=== PATIENT | female | born 1995 | race Caucasian/White ===

== ENCOUNTER → 2021-06-10 | Outpatient (CLI) | payer OTHER ==
--- NOTE | 2021-06-13 16:05 | REP ---
INDICATION: BMI GREATER THEN 40, GROWTH COMPARISON: None. TECHNIQUE: Transabdominal obstetrical ultrasound with color Doppler evaluation. FINDINGS: Examination demonstrates a single live intrauterine in breech presentation. motion is identified by technologist. Placenta is noted right lateral/fundal and grade 1 without evidence for placenta previa or abruption. Amniotic fluid volume is normal. Cervix measures 5.2 cm in length and appears closed.. Selected gestational age: 29 weeks 1 day with PEPE 08/25/2021. Gestational age by current measurements 29 weeks 1 day with PEPE 08/25/2021. FHR equals 156 beats per minute. BPD: 7.2 cm at 28 weeks 6 days HC: 27.6 cm at 30 weeks 1 day AC: 25.4 cm at 29 weeks 4 days FL: 5.3 cm at 28 weeks 2 days HL: 4.9 cm at 28 weeks 5 days HC/AC: 1.08 Estimated weight 1344 grams (39thpercentile). Anatomical assessment demonstrates normal structures including cranium, choroid plexus, cavum, cerebellum/posterior fossa, lungs, four-chamber heart/ventricular outflow tracts, diaphragm, stomach, cord insertion/three-vessel cord, kidneys/bladder, spine, and lower extremities. Limited evaluation of the facial profile and upper extremities due to position and maternal body habitus. IMPRESSION: Single live intrauterine in breech presentation demonstrating appropriate estimated weight. Anatomical limitations as noted above. Remainder of the anatomical assessment is complete and normal. <Electronically signed by Babatunde Delarosa > 06/10/21 [id number]
== END ==
LOC: M RAD 12:39
PROVIDERS: ATTEND Registered Nurse Maternal Newborn
DX: O26.893 Other specified pregnancy related conditions, third trimester (principal); O32.1XX0 Maternal care for breech presentation, not applicable or unspecified; Z3A.29 29 weeks gestation of pregnancy

== ENCOUNTER → 2021-07-06 | Outpatient (CLI) | payer OTHER ==
[~2021-07-06] MED LIST: ACET500P3 PO; COLA100C5 PO; IBUP80TA PO; PRENTAB9 PO; SERT50TA29 PO; SYNT88TA2 PO; ZOLO50TA PO
== END ==
LOC: M RAD 10:38
PROVIDERS: ATTEND Registered Nurse Maternal Newborn
DX: O99.213 Obesity complicating pregnancy, third trimester (principal); Z3A.32 32 weeks gestation of pregnancy; O32.2XX0 Maternal care for transverse and oblique lie, not applicable or unspecified

== ENCOUNTER 2021-08-05 12:29 | Outpatient (CLI) | payer OTHER ==
[~2021-08-05] VITALS: Ht 162.6 cm; Wt 117.0 kg
[2021-08-05 12:54] VITALS: BP 103/59
[2021-08-05] MEDS ORDERED: ZOLO50TA PO (13:06)
[2021-08-05] MEDS ORDERED: SYNT88TA2 PO (13:06)
[2021-08-05] MEDS ORDERED: PRENTAB9 PO (13:06)
[2021-08-05] MEDS ORDERED: ACET500P3 PO (13:06)
[2021-08-05 13:14] LABS: HEMATOCRIT 33.5 % (36.0-47.0); MEAN CORPUSCULAR HEMOGLOBIN 26.3 pg (27.0-33.0); MEAN CORPUSCULAR HGB CONC 32.8 g/dl (32.0-36.5); PLATELET COUNT, AUTOMATED 155 10^3/uL (150-450); RED BLOOD COUNT 4.19 10^6/uL (4.00-5.40); WHITE BLOOD COUNT 5.9 10^3/uL (4.0-10.0)
[2021-08-05 13:31] LABS: APPEARANCE, URINE CLEAR (CLEAR); BACTERIA, URINE AUTO NEGATIVE (NEGATIVE); BILIRUBIN, URINE AUTO NEGATIVE (NEGATIVE); BLOOD, URINE BLOOD NEGATIVE (NEGATIVE); COLOR, URINE YELLOW (YELLOW); GLUCOSE, URINE (UA) AUTO NEGATIVE (NEGATIVE); KETONE, URINE AUTO NEGATIVE (NEGATIVE); LEUKOCYTE ESTERASE, URINE AUTO NEGATIVE (NEGATIVE); NITRITE, URINE AUTO NEGATIVE (NEGATIVE); PROTEIN, URINE AUTO NEGATIVE (NEGATIVE); RBC, URINE AUTO 0 /HPF (0-3); SPECIFIC GRAVITY URINE AUTO 1.004 (1.002-1.035); SQUAMOUS EPITHELIAL CELL UR AU 0 /HPF (0-6); UROBILINOGEN, URINE AUTO 0.2 mg/dL (0.0-2.0); WBC, URINE AUTO 0 /HPF (0-3)
[2021-08-05 13:41] LABS: ALBUMIN 2.6 GM/DL (3.2-5.2); ALT/SGPT 11 U/L (12-78); BILIRUBIN,TOTAL 0.3 MG/DL (0.2-1.0); BLOOD UREA NITROGEN 4 MG/DL (7-18); CALCIUM LEVEL 8.5 MG/DL (8.5-10.1); CARBON DIOXIDE LEVEL 22 MEQ/L (21-32); CHLORIDE LEVEL 109 MEQ/L (98-107); CREATININE FOR GFR 0.72 MG/DL (0.55-1.30); GLOMERULAR FILTRATION RATE > 60.0 (>60); GLUCOSE, FASTING 83 MG/DL (70-100); POTASSIUM SERUM 3.7 MEQ/L (3.5-5.1); SODIUM LEVEL 139 MEQ/L (136-145); TOTAL PROTEIN 6.1 GM/DL (6.4-8.2)
[2021-08-05 14:14] VITALS: BP 117/64
[2021-08-05 15:02] VITALS: BP 118/62
--- NOTE | 2021-08-05 16:07 | REP ---
INDICATION: GROWTH SONO. COMPARISON: 07/06/2021. TECHNIQUE: Real-time sonographic evaluation of the gravid uterus performed. FINDINGS: Estimated gestational age is37 weeks 1 day, EDC 08/25/2021. Today's measurements indicate appropriate growth. Presentation: Breech Placenta posterior, grade 2, without evidence of placenta previa. heart rate is recorded at 149 beats per minute. Amniotic fluid is subjectively normal. BETH 12.4, normal 7.5-24.4. Biophysical profile score 8/8. Closed cervical length is measured at 2.5 cm. Biometry chart: BPD: 91 mm, 37 weeks 1 days, 50th percentile. HC: 337 mm, 38 weeks 4 days, 76th percentile AC: 344 mm, 38 weeks 2 days, 69th percentile Femur length: 68 mm, 35 weeks 0 days, 18th percentile HC to AC ratio: 0.98, normal range 0.91-1.10. Estimated weight: 3212g, 66th percentile. SD ratio umbilical artery 2.17, normal 1.59-3.42. RI 0.54, normal 0.43-0.70. IMPRESSION: Viable single intrauterine gestation as above. <Electronically signed by Jay Montague > 08/05/21 [id number]
== END 2021-08-05 16:25 | disposition home or self-care (01) ==
LOC: M LDO 12:29
PROVIDERS: ATTEND Obstetrics & Gynecology
DX: O98.519 Other viral diseases complicating pregnancy, unspecified trimester (principal); U07.1 COVID-19; Z3A.00 Weeks of gestation of pregnancy not specified
CPT/HCPCS: 36415; 59025; 76816; 76819; 76820; 80053; 81001; 85027; 87081; G0378; G0463; U0002

== ENCOUNTER 2021-08-14 21:52 | Outpatient (CLI) | payer OTHER ==
[~2021-08-14] VITALS: Ht 162.6 cm; Wt 113.6 kg
[~2021-08-14 21:52] MED LIST changes: -COLA100C5 PO; -IBUP80TA PO; -SERT50TA29 PO
[2021-08-14 22:10] VITALS: BP 122/69
== END 2021-08-14 22:37 | disposition home or self-care (01) ==
LOC: M LDO 21:52
PROVIDERS: ATTEND Obstetrics & Gynecology
DX: O60.03 Preterm labor without delivery, third trimester (principal); Z3A.37 37 weeks gestation of pregnancy
CPT/HCPCS: 59025; G0378; G0463

== ENCOUNTER 2021-08-26 05:07 | Inpatient (IN) | payer OTHER ==
[~2021-08-26] VITALS: Ht 162.6 cm; Wt 117.8 kg
[2021-08-26 05:23] VITALS: BP 119/66
[2021-08-26] MEDS ORDERED: HOME MED LIST COMPLETE! XX SCH (05:30)
[2021-08-26] MEDS ORDERED: LR 1,000 ML IV SCH ×2 (05:40→06:55)
--- OUTSIDE RECORDS SUMMARY | 2021-08-26 05:44 | CCD ---
Author Author [facility] Organization [facility] Address Unknown Phone Unavailable Care Team Providers Care Dispute Resolution Specialist Name Role Phone ANAMIKA MELARA Unavailable Unavailable Zac Cruz Unavailable [phone] Zac Cruz Unavailable [phone] Fatuma Cruzon Unavailable [phone] Fatuma Cruzon Unavailable [phone] Fatuma Cruzon Unavailable [phone] Nancy Zac Unavailable [phone] [facility] Unavailable Unavailable Re-disclosure Warning The records that you are about to access may contain information from federally-assisted alcohol or drug abuse programs. If such information is present, then the following federally mandated warning applies: This information has been disclosed to you from records protected by federal confidentiality rules (42 CFR part 2). The federal rules prohibit you from making any further disclosure of this information unless further disclosure is expressly permitted by the written consent of the person to whom it pertains or as otherwise permitted by 42 CFR part 2. A general authorization for the release of medical or other information is NOT sufficient for this purpose. The Federal rules restrict any use of the information to criminally investigate or prosecute any alcohol or drug abuse patient.The records that you are about to access may contain highly sensitive health information, the redisclosure of which is protected by Article 27-F of the [facility] Public Health law. If you continue you may have access to information: Regarding HIV / AIDS; Provided by facilities licensed or operated by the [facility] Office of Mental Health; or Provided by the [facility] Office for People With Developmental Disabilities. If such information is present, then the following [facility] mandated warning applies: This information has been disclosed to you from confidential records which are protected by state law. State law prohibits you from making any further disclosure of this information without the specific written consent of the person to whom it pertains, or as otherwise permitted by law. Any unauthorized further disclosure in violation of state law may result in a fine or mcc sentence or both. A general authorization for the release of medical or other information is NOT sufficient authorization for further disc losure. Allergies and Adverse Reactions Type Description Substance Reaction Status Data Source(s ) Allergy Allergy No Known Drug Allergies Active A [facility] ([facility]) Encounters Encounter Providers Location Date Indications Data Source(s ) Outpatient Attender: Zac Cruz 08/05 09:31:09 AM EDT - 08/05/2021 11:51:30 AM EDT Kristan ([facility] ) Outpatient Attender: ANAMIKA Landerosant: [facility] 2021 01:14:00 PM EDT - 2021 02:14:00 PM EDT [facility] ital Outpatient<td><content ID="_[id number]">Office Visit</content>
<content><content styleCode="xLabel xSecondary">Encounter Reason:</content><content ID="_[id number]" styleCode="xSecondary">Office Visit - Note for "Office Visit": I had the pleasure of seeing Rashaad in consultation for echocardiography due to family history of CHD.She is a 25 year old 3 para 2 who is now 23 weeks . She is accompanied to the visit by her son. Her is followed by [facility]. Her has been unremarkable thus far. She is planning on delivering at [facility]. 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
<content><content styleCode="xSecondary xLabel">Encounter Diagnosis:</content><content ID="_[id number]" styleCode="xSecondary">Hereditary disease in family possibly affecting fetus, affecting management of mother, antepartum condition or complication, fetus 1</content></content></td><td><content styleCode="xSecondary">05-May-2021 14:00 </content><content styleCode="xLabel xSecondary"> To </content><content styleCode="xSecondary">07-May-2021 14:59</content>
<content styleCode="xSecondary">[facility]</content>
</td><td></td> [facility] 05/05/2021 02:28:02 PM EDT - 05/07/2021 02:59:16 PM EDT Office Visit - Note for "Office Visit": I had the pleasure of seeing Rashaad in consultation for echocardiography due to family history of CHD.She is a 25 year old 3 para 2 who is now 23 weeks . She is accompanied to the visit by her son. Her is followed by [facility]. Her has been unremarkable thus far. She is planning on delivering at [facility]. The ice cream server for the fetus is undecided.She is taking zoloft, baby aspirin and vitamins.Hereditary disease in family possibly affecting fetus, affecting management of mother, antepartum condition or complication, fetus 1 [facility] ([facility]) Office Visit - Note for "Office Visit": I had the pleasure of seeing Rashaad in consultation for echocardiography due to family history of CHD.She is a 25 year old 3 para 2 who is now 23 weeks . She is accompanied to the visit by her son. Her is followed by [facility]. Her has been unremarkable thus far. She is planning on delivering at [facility]. The ice cream server for the fetus is undecided.She is taking zoloft, baby aspirin and vitamins. Hereditary disease in family possibly af fecting fetus, affecting management of mother, antepartum condition or complication, fetus 1 Procedure Only<td><content [id number]">Procedure Only</content>
<content><content styleCode="xSecondary xLabel">Encounter Diagnosis:</content><content [id number]" styleCode="xSecondary">Hereditary disease in family possibly affecting fetus, affecting management of mother, antepartum condition or complication, fetus 1</content></content></td><td><content styleCode="xSecondary">05-May-2021 14:00 </content><content styleCode="xLabel xSecondary"> To </content><content styleCode="xSecondary">05-May-2021 14:50</content>
<content styleCode="xSecondary">[facility]</content>
</td><td></td> [facility] 05/05/2021 02:00:00 PM EDT - 05/05/2021 02:50:15 PM EDT Hereditary disease in family possibly affecting fetus, affecting management of mother, antepartum condition or complication, fetus 1 [facility] ([facility]) Hereditary disease in family possibly af fecting fetus, affecting management of mother, antepartum condition or complication, fetus 1 Medications No Information Insurance Providers Payer name Policy type / Coverage type Policy ID Covered constitution party ID Covered constitution party's relationship to hamilton Policy [place] Plan Information MURALI KELLY/MURALI [id number] Spouse 01 [id number] [facility] [id number] [employer] - O/P [id number] 19 [id number] Problems, Conditions, and Diagnoses Code Display Name Description Problem Type Effective Dates Data Source(s) Z3A35 35 weeks gestation of 35 weeks gestation of Diagnosis 2021 01:14:00 PM EDT [facility] Z362 Encounter for other screening follow-up Encounter for other screening follow-up Diagnosis 2021 01:14:00 PM EDT [facility] Surgeries/Procedures Procedure Description Date Indications Data Source(s) ECHO CARDIOVASC W/WO M-MODE RECORDING <td colspa n="2"> ECHO EXAM OF HEART, 2D (28169)</td><td> Status: Completed 05-May-2021 </td> 05/05/2021 02:29:00 PM EDT - 05/05/2021 02:29:00 PM EDT [facility] ([facility]) Results ID Date Data Source [id number] 08/05/2021 12:57:00 PM EDT [facility] Name Value Range Interpretation Code Description Data Cristin rce(s) Supporting Document(s) SARS coronavirus 2 RNA [Presence] in Res piratory specimen by NINA with probe detection POSITIVE [facility] This lab was ordered by [facility] a nd reported by [facility]. ID Date Data Source [id number] 08/05/2021 10:30:00 AM EDT [facility] Name Value Range Interpretation Code Description Data Cristin rce(s) Supporting Document(s) SARS-CoV-2 RNA Resp Ql NINA+probe DETECTED [facility] This lab was ordered by [facility] and reported by [facility]. ID Date Data Source [id number] 2021 05:09:00 PM EDT [facility] [address] [place] [address] PHONE: [phone] FAX: [phone] Name .................. : CATRINA NEIL Acct Number.................. : [id number] ROOM. ................. : MR Number ................... : [id number] Stay type ............. : O/P Discharge Date......... ... : 07/29/21 Admit Date ......... : 07/29/21 Admit Phys .................... : SARITHA HUYNH Date of ....... : 1995 Family Phys ................... : UNKNOWN Phone .................. : [phone] Age ................................ : 26 Film# .................. .:[id number] Sex ................................. : F Unsigned transcriptions are preliminary reports and do not represent a medical or legal document OB FOLLOW UP [id number] COMPLETE:07/29/21 15:21 ADB 04150 Reason for Exam: GROWTH DUE TO MORBID ULTRASOUND OBSTETRICAL FOLLOW-UP INDICATION: Check estimated weight. Maternal obesity. COMPARISON: None LMP: unknown Predicted gestational age by current exam: 35 weeks 5 days FINDINGS: BPD 9.0 cm, 36 weeks 2 days HC 33.9 cm, 38 weeks 6 days AC 32.9 cm, 36 weeks 6 days FL 6.4 cm, 33 weeks 0 days HL 5.8 cm, 33 weeks 6 days FL/AC: 0.19 HC/AC: 1.03 within normal range CI: 0.73 within normal range EFW 2828 grams. Maternal cervical length 3.2 cm. FHR 150 bpm GESTATION single PRESENTATION Vertex PLACENTAL LOCATION posterior PREVIA/ABRUPTION None AMNIOTIC FLUID within normal limits BETH 15.1. Normal range 7.724.9 Page 1 of 2 [facility] [address] [place] [address] PHONE: [phone] FAX: [phone] Name .................. : CATRINA NEIL Acct Number.................. : [id number] ROOM. ................. : Number ................... : [id number] Stay type ............. : O/P Discharge Date......... ... : 07/29/21 Admit Date ......... : 07/29/21 Admit Phys .................... : SARITHA CERVANTESI Date of ....... : 1995 Family Phys ................... : UNKNOWN Phone .................. : [phone] Age ................................ : 26 Film# .................. .:[id number] Sex ................................. : F Unsigned transcriptions are preliminary reports and do not represent a medical or legal document OB FOLLOW UP [id number] COMPLETE:07/29/21 15:21 ADB 00306 Reason for Exam: GROWTH DUE TO MORBID The examination is degraded by large patient body habitus. Full anatomic survey was not ordered or performed. IMPRESSION: 1. Single live intrauterine gestation. Estimated gestational age 35 weeks 5 days based on today's exam. No prior exams available to establish more accurate dating. 2. Estimated weight 2828 g. 3. Amniotic fluid within normal limits. BETH 15.1. Electronically Reviewed and Signed By Ronald Massey MD , 07/29/21 17:10, JWS Transcribe Initials: OBEY , Transcribe Date: 07/29/21 15:45, Dictation Date: Copy for: SARITHA WILLSON Copy for: [address] [place] [address] REC Page 2 of 2 Name Value Range Interpretation Code Description Data Cristin rce(s) Supporting Document(s) Procedure Social History No Information
[2021-08-26] MEDS ORDERED: ACETAMINOPHEN 500 MG TAB PO SCH (06:00)
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
[2021-08-26 06:16] LABS: HEMATOCRIT 34.3 % (36.0-47.0); HEMOGLOBIN 11.4 g/dl (12.0-15.5); MEAN CORPUSCULAR HEMOGLOBIN 26.6 pg (27.0-33.0); MEAN CORPUSCULAR HGB CONC 33.2 g/dl (32.0-36.5); PLATELET COUNT, AUTOMATED 163 10^3/uL (150-450); RED BLOOD COUNT 4.29 10^6/uL (4.00-5.40); WHITE BLOOD COUNT 9.9 10^3/uL (4.0-10.0)
[2021-08-26] MEDS ORDERED: OXYTOCIN 30 UNITS IN 0.9% NaCl 500ML IV BAG (J2590) As Ordered ONE (06:20)
[2021-08-26] MEDS ORDERED: LIDOCAINE 1% MDV 20ML VIAL As Ordered ONE (06:36)
[2021-08-26] MEDS ORDERED: PROMETHAZINE 25 MG TAB PO PRN (06:55)
[2021-08-26] MEDS ORDERED: OXYTOCIN DRIP 30 UNITS in IV 1 EA IV SCH ×4 (06:55)
[2021-08-26] MEDS ORDERED: RHOGAM 300 MCG (1500 IU) INJ (J2790) IM SCH (06:55)
[2021-08-26] MEDS ORDERED: ONDANSETRON 4MG/2ML VIAL IV PRN (06:55)
[2021-08-26] MEDS ORDERED: METHYLERGONOVINE MALEATE 0.2 MG TAB PO PRN (06:55)
[2021-08-26] MEDS ORDERED: DIBUCAINE 1% OINTMENT 30GM TOP PRN (06:55)
[2021-08-26] MEDS ORDERED: LIDOCAINE 1% MDV 20ML VIAL SC ONE (06:55)
[2021-08-26] MEDS ORDERED: MEASLES,MUMPS,RUBELLA VACCINE INJ (MMR-II) (90707) SC SCH (06:55)
[2021-08-26] MEDS ORDERED: DOCUSATE SODIUM 100MG CAPSULE PO PRN (06:55)
[2021-08-26 06:58] VITALS: BP 108/72
--- NOTE | 2021-08-26 07:11 | DNPDOC ---
[facility] Delivery Note Delivery Note DATE OF DELIVERY: 26AUG2021 PREDELIVERY DIAGNOSIS: 39+4 weeks' gestation and labor. POST DELIVERY DIAGNOSIS: Delivered. PROCEDURE: Spontaneous vaginal delivery PIPED POCKET MACHINE OPERATOR: Pabol Barrientos DO ANESTHESIA: none ESTIMATED BLOOD LOSS: 300 mL. FINDINGS: 7 pound 15 ounce 3590g infant, Score 8/9, no nuchal or body cord DELIVERY SUMMARY: Eleanor Wen, well known to me from previous admissions, presented to Labor&Delivery and was 8cm with a bulging bag. We moved her to a labor room and began the admissions process. During the admissions process she could not resist the urge to push, and the membranes ruptured with meconium. She then delivered the baby in one push; head and shoulders delivered without issue. The was placed on the maternal abdomen and dried/stimulated. Good cry was noted. The umbilical cord was then clamped and cut by the father of the baby. The placenta then spontaneously delivered and was found to be complete on inspection. Inspection of the perineum revealed a 1st degree midline laceration which was repaired with 2 mqkfav-on-hhenz sutures of 0-vicryl. Hemostasis was noted. The maternal- dyad appeared to be bonding well and were in good condition when I left the room. DO HAILEY Altman BRADLEY J. DO Aug 26, 2021 07:11
[2021-08-26] MEDS: PRENATAL VITAMINS CHEWABLE TABLET PO SCH (07:22)
[2021-08-26] MEDS: IBUPROFEN 800 MG TAB PO SCH ×3 (07:22→22:07)
[2021-08-26] MEDS ORDERED: PRENATAL VITAMINS CHEWABLE TABLET PO SCH (09:00)
[2021-08-26] MEDS: ACETAMINOPHEN 500 MG TAB PO SCH ×3 (09:18→20:59)
[2021-08-26 09:22] VITALS: BP 133/72
[2021-08-26 17:51] VITALS: BP 129/78
[2021-08-26] MEDS ORDERED: ZOLO50TA PO (22:42)
[2021-08-26] MEDS ORDERED: SYNT88TA2 PO (22:42)
[2021-08-27] MEDS: ACETAMINOPHEN 500 MG TAB PO SCH ×3 (03:28→15:00)
[2021-08-27 06:00] VITALS: BP 135/77
[2021-08-27] MEDS ORDERED: LEVOTHYROXINE 88MCG TABLET (0.088 MG) PO SCH (06:00)
[2021-08-27] MEDS: IBUPROFEN 800 MG TAB PO SCH ×2 (06:28→14:44)
--- NOTE | 2021-08-27 07:54 | IPN ---
PROGRESS NOTE DATE: 08/27/2021 SUBJECTIVE: 26-year-old 3, now para 3 admitted with contractions at 39 and 4 weeks of gestation. Spontaneous vaginal delivery of male infant, 7 pounds 15 pounds, 3590 gm, Apgars of 8 and 9 at one and five minutes respectively. She sustained a first degree laceration which was repaired. She is hypothyroid, she is taking medication, Synthroid 0.88. She has history of depression and self-harm. On her first day we discussed phlebitis, cystitis, mastitis, amnionitis, cellulitis, diet, exercise, perineal and breast care. The patient is planning on discharge tomorrow morning. She is breast feeding, doing well. Her blood pressure this morning is 135/77, respirations 20, pulse 76, temperature 97.8. Her admitting hemoglobin was 11.4, hematocrit 34.4 and platelets 163. OBJECTIVE: The rest of the exam was unremarkable. Normocephalic, atraumatic. Neck full range of motion. Pupils equal and reactive to light. Distal pulses symmetric. No evidence of DVT, PE or superficial phlebitis. Chest is clear bilaterally at bases, no wheezes, rhonchi, and no CVA tenderness. Abdomen soft, four quadrant bowel sounds are noted. Uterus 2 below. Lochia is moderate. Perineum is healing. No urgency or frequency. No nausea, vomiting, diarrhea or constipation. No wheezing, no rhonchi. No chest pain. SUMMARY: We have a term gestation, delivered livebirth male infant. Waiting for pediatrics to see the baby today, circumcision is planned for today and discharge for tomorrow. All questions were answered. 20 minute discussion. cc: [facility]
[2021-08-27 08:09] LABS: HEMATOCRIT 30.7 % (36.0-47.0); HEMOGLOBIN 9.9 g/dl (12.0-15.5); MEAN CORPUSCULAR HEMOGLOBIN 26.5 pg (27.0-33.0); MEAN CORPUSCULAR HGB CONC 32.2 g/dl (32.0-36.5); MEAN CORPUSCULAR VOLUME 82.1 fl (80.0-96.0); PLATELET COUNT, AUTOMATED 141 10^3/uL (150-450); RED BLOOD COUNT 3.74 10^6/uL (4.00-5.40); WHITE BLOOD COUNT 9.7 10^3/uL (4.0-10.0)
[2021-08-27] MEDS ORDERED: SERTRALINE HCL 50 MG TAB PO SCH (09:00)
[2021-08-27] MEDS: PRENATAL VITAMINS CHEWABLE TABLET PO SCH (09:30)
[2021-08-27 17:14] VITALS: BP 135/80
[2021-08-27] MEDS ORDERED: IBUP80TA PO (17:47)
[2021-08-27] MEDS ORDERED: SERT50TA29 PO (17:47)
[2021-08-27] MEDS ORDERED: SYNT88TA2 PO (17:47)
[2021-08-27] MEDS ORDERED: COLA100C5 PO (17:47)
--- NOTE | 2021-08-28 09:48 | IPN ---
PROGRESS NOTE DATE: 08/26/2021 SUBJECTIVE: This patient requested circumcision of her male after discussing risks and benefits of circumcision, the medical, the nonmedical indications, penile block and after care, expressed an understanding of penile block, aftercare and bleeding, signed the consent form. All questions were answered, a 20 minute discussion. We await clearance by the tray drier. cc: [facility] CAR[facility]OS
== END 2021-08-27 20:54 | disposition home or self-care (01) | DRG 807 ==
LOC: M LDO 05:07 → M LDI 05:41 → M OBS 09:00
PROVIDERS: ADMIT Obstetrics & Gynecology; ATTEND Obstetrics & Gynecology
PROC: 10E0XZZ Delivery of Products of Conception, External Approach (ICD-10-PCS; principal; 2021-08-26)
PROC: 0HQ9XZZ Repair Perineum Skin, External Approach (ICD-10-PCS; 2021-08-26)
DX: O99.284 Endocrine, nutritional and metabolic diseases complicating childbirth (principal); Z37.0 Single live birth; E03.9 Hypothyroidism, unspecified; Z3A.39 39 weeks gestation of pregnancy; O99.214 Obesity complicating childbirth; E66.9 Obesity, unspecified; O77.0 Labor and delivery complicated by meconium in amniotic fluid; O70.0 First degree perineal laceration during delivery; Z86.16 Personal history of COVID-19

== ENCOUNTER 2023-02-16 17:51 | Emergency (ER) | payer OTHER ==
[~2023-02-16] VITALS: Ht 162.6 cm; Wt 109.0 kg
[~2023-02-16 17:51] MED LIST changes: +COLA100C5 PO; +IBUP80TA PO; +SERT50TA29 PO
[2023-02-16] MEDS ORDERED: ACET1TAB55 PO (17:59)
[2023-02-16 21:22] LABS: BASO % 0.2 % (0.0-1.0); EOS % 0.3 % (0.0-3.0); HEMATOCRIT 43.2 % (36.0-47.0); LYMPH # 2.8 10^3/uL (1.5-5.0); LYMPH % 28.3 % (24.0-44.0); MEAN CORPUSCULAR HEMOGLOBIN 27.6 pg (27.0-33.0); MEAN CORPUSCULAR HGB CONC 32.4 g/dl (32.0-36.5); MEAN CORPUSCULAR VOLUME 85.2 fl (80.0-96.0); MONO # 0.4 10^3/uL (0.0-0.8); MONO % 3.6 % (2.0-8.0); NEUTROPHILS # 6.6 10^3/uL (1.5-8.5); NEUTROPHILS % 67.2 % (36.0-66.0); PLATELET COUNT, AUTOMATED 295 10^3/uL (150-450); RED BLOOD COUNT 5.07 10^6/uL (4.00-5.40); WHITE BLOOD COUNT 9.9 10^3/uL (4.0-10.0)
[2023-02-16 21:50] LABS: LIPASE 24 U/L (12-53)
[2023-02-16 21:51] LABS: HCG, SERUM QUALITATIVE NEGATIVE (NEGATIVE)
[2023-02-16 21:52] LABS: ALBUMIN 4.3 G/DL (3.2-5.2); ALKALINE PHOSPHATASE 78 U/L (46-116); ALT/SGPT 20 U/L (7.0-40); AST/SGOT 12 U/L (<34); BILIRUBIN,DIRECT 0.1 MG/DL (<0.4); BILIRUBIN,TOTAL 0.3 MG/DL (0.3-1.2); BLOOD UREA NITROGEN 8 MG/DL (9-23); CALCIUM LEVEL 9.7 MG/DL (8.5-10.1); CARBON DIOXIDE LEVEL 29 MMOL/L (20-31); CHLORIDE LEVEL 107 MMOL/L (98-107); CREATININE FOR GFR 0.76 MG/DL (0.55-1.30); GLOMERULAR FILTRATION RATE > 60.0 (>60); GLUCOSE, FASTING 111 MG/DL (60-100); POTASSIUM SERUM 4.8 MMOL/L (3.5-5.1); SODIUM LEVEL 141 MMOL/L (136-145); TOTAL PROTEIN 7.2 G/DL (5.7-8.2)
[2023-02-17] MEDS ORDERED: SUCRALFATE 1 GM TAB PO ONE (01:10)
[2023-02-17] MEDS ORDERED: OMEPRAZOLE 20MG CAP PO ONE (01:10)
[2023-02-17] MEDS ORDERED: GI COCKTAIL 50ML BTL(HYOSCYAMINE/MAALOX/LIDOCAINE VISCOUS)(1:3:1) PO ONE (01:10)
[2023-02-17] MEDS ORDERED: CARA1TAB6 PO (02:20)
[2023-02-17] MEDS ORDERED: OMEP20TA18 PO (02:20)
[2023-02-17 02:34] VITALS: BP 122/85
== END 2023-02-17 02:36 | disposition home or self-care (01) ==
LOC: M ED 17:51
DX: G89.28 Other chronic postprocedural pain (principal); N28.1 Cyst of kidney, acquired; F17.200 Nicotine dependence, unspecified, uncomplicated